=== PATIENT | male | born 1960 | race Native Hawaiian/Other Pacific Islander ===

== ENCOUNTER 2017-08-23 09:28 | Outpatient (CLI) | payer OTHER | END 2017-08-23 22:24 | disposition home or self-care (01) | LOC: RAD 09:28 | DX: M47.896 Other spondylosis, lumbar region (principal) ==

== ENCOUNTER 2018-05-29 09:22 | Outpatient (CLI) | payer OTHER | END 2018-05-29 19:25 | disposition home or self-care (01) | LOC: RESP 09:22 | DX: R06.02 Shortness of breath (principal) ==

== ENCOUNTER 2018-07-08 07:39 | Outpatient (CLI) | payer OTHER ==
[~2018-07-08] VITALS: Ht 177.8 cm; Wt 105.7 kg
== END 2018-07-08 23:47 | disposition home or self-care (01) ==
LOC: NM 07:39
DX: R06.09 Other forms of dyspnea (principal)
CPT/HCPCS: A9500; J2785

== ENCOUNTER 2020-02-10 09:57 | Outpatient (CLI) | payer OTHER | END 2020-02-10 22:55 | disposition home or self-care (01) | LOC: RESP 09:57 | DX: J44.9 Chronic obstructive pulmonary disease, unspecified (principal) ==

== ENCOUNTER → 2020-06-15 13:24 | Outpatient (CLI) | payer OTHER | END | disposition home or self-care (01) | LOC: MRI 06-13 09:00 | PROVIDERS: ATTEND Anesthesiology Pain Medicine | DX: M54.5 Low back pain (principal) ==

== ENCOUNTER 2021-02-02 18:57 | Inpatient (IN) | payer OTHER ==
[~2021-02-02] VITALS: Ht 177.8 cm; Wt 96.4 kg
[2021-02-02 18:57] VITALS: BP 133/87; TEMP 97.3
[2021-02-02 20:00] VITALS: BP 144/91
[2021-02-02 20:00] LABS: PLATELET COUNT 227 K/uL (142-355)
[2021-02-02 20:18] LABS: PARTIAL THROMBOPLASTIN TIME 26.3 SECONDS (24.5-33.6)
[2021-02-02 20:21] LABS: POTASSIUM 3.9 mmol/L (3.6-5.2); SODIUM 137 mmol/L (136-145)
[2021-02-02 21:00] VITALS: BP 166/109
[2021-02-02 22:00] VITALS: BP 153/104
[2021-02-02 23:00] VITALS: BP 157/106
[2021-02-03] VITALS (7 sets, daily range): BP systolic 119–163; BP diastolic 75–104; TEMP 97.6–98.6; Ht 177.8 cm; Wt 96.4 kg
--- NOTE | 2021-02-03 02:12 | NUR ---
PT ARRIVED TO MED-SURG @ 0031 02/03/21 VIA STRETCHER FROM ER. ALERT AND ORIENTED *4 VOICE COMPLAINTS OF SOB. VITALS 98.2,99,21,153/102,93. PT ON HIGH FLOW AT 50L/MIN AT 71%. PT ABLE TO AMBULATE WITH MIMINAL ASSISTANCE. ORIENTED TO ROOM, CALL BUTTON, AND BATHROOM. PT VERBALIZED NO PAIN AT PRESENT JUST "CAN'T BREATHE" TELEMETRY CONNECTED PT HAS HX OF HTN, DM, RA, DEGENERATE ARTHURITIS IN BACL, GOUT, FORMER SMOKER, VERBALIZE DRINKING A "6 PACK A DAY". PT PCP Enrike MCKEON 02/02/21 PT HAS 20G TO LAC.
[2021-02-03 05:04] LABS: PARTIAL THROMBOPLASTIN TIME 26.7 SECONDS (24.5-33.6)
[2021-02-03 05:05] LABS: PLATELET COUNT 222 K/uL (142-355)
[2021-02-03 05:21] LABS: SODIUM 138 mmol/L (136-145)
--- NOTE | 2021-02-03 09:42 | NUR ---
PT IS CURRENTLY RECIEVING AN ULTRASOUND. WILL BE BACK TO CONTINUE PT CARE.
--- NOTE | 2021-02-03 10:14 | NUR ---
MORNING ASSESSMENT AND MED ADMINISTRATION HAS BEEN PERFORMED. PT TOOK MEDICATIONS WITHOUT ANY DIFFICULTY. PT IS IN [place] WATCHING TELEVISION. PT STATED THAT HE HAD A SMALL INCONTINENT EPISODE, SCIENTIST IMMUNOLOGY CLEANED PT AND PLACED HIM IN A FRESH BRIEF. PT STATED THAT HE IS NOT NORMALLY INCONTINENT BUT COULD NOT GET OUT OF THE BED FAST ENOUGH TO GO TO THE BATHROOM. A BEDSIDE COMMODE WAS PLACED IN THE PT'S ROOM. WILL CONTINUE TO MONITOR.
--- NOTE | 2021-02-03 12:06 | NUR ---
1145 PT FIO2 DECREASED TO 60%. POX REMAINED 95-96%. PT NURSE INFORMED OF CHANGE.
--- NOTE | 2021-02-03 15:53 | NUR ---
1540 PT FIO2 DECREASED TO 55% ON HFNC. POX REMAINED 96-97%. PT NURSE INFORMED OF CHANGE.
[2021-02-03] MEDS ORDERED: TRICOR145 M1 PO (20:26)
[2021-02-03] MEDS ORDERED: FISH OIL1 C10 PO (20:27)
[2021-02-03] MEDS ORDERED: ESCI10TA PO (20:28)
[2021-02-03] MEDS ORDERED: CLOP75TA2 PO (20:29)
[2021-02-03] MEDS ORDERED: ALLO300T23 PO (20:29)
[2021-02-03] MEDS ORDERED: METFORMIN ER1000 MG PO (20:30)
[2021-02-03] MEDS ORDERED: LIPITOR20 MG PO (20:32)
[2021-02-03] MEDS ORDERED: CARV25TA PO (20:32)
[2021-02-03] MEDS ORDERED: CELEBREX200 MG PO (20:34)
[2021-02-03] MEDS ORDERED: VITAMIN D50000 UNIT PO (20:35)
[2021-02-03] MEDS ORDERED: POTASSIUM CHLO20 ME1 PO (20:36)
[2021-02-03] MEDS ORDERED: FUROSEMIDE40 MG PO (20:37)
[2021-02-03] MEDS ORDERED: ASA LOW DOSE81 MG (20:38)
[2021-02-03] MEDS ORDERED: MECLIZINE 2525 MG PO (20:39)
[2021-02-04] VITALS: BP 143/100; TEMP 97.8
[2021-02-04 04:00] VITALS: BP 139/92; TEMP 97.8
[2021-02-04 08:00] VITALS: BP 125/87; TEMP 97.6
--- NOTE | 2021-02-04 08:58 | NUR ---
PT IS ON HFNC AT 50LPM AT 55% FIO2. SPO2 AT 98%. RT DECREASED HFNC TO 40LPM AT 45% FIO2. SPO2 AT 98%. WILL CONTINUE TO MONITOR AND WEAN PT TOLERATED.
[2021-02-04 09:07] LABS: PLATELET COUNT 245 K/uL (142-355)
--- NOTE | 2021-02-04 09:13 | NUR ---
RT CAME TO TALK WITH AUTOMATIC TRANSMISSION MECHANIC INFORMING AUTOMATIC TRANSMISSION MECHANIC THAT PT'S O2 SETTINGS HAVE BEEN DROPPED TO 40L AT 45% ON HIGH FLOW. PT IS CURRENTLY MAINTAINING AT 02 SATURATION OF 96%.
[2021-02-04 09:28] LABS: POTASSIUM 3.2 mmol/L (3.6-5.2)
--- NOTE | 2021-02-04 09:32 | NUR ---
IN PT'S ROOM FOR MORNING ASSESSMENT ALONG WITH MEDICATION ADMINISTRATION. PT IS SITTING UPRIGHT ON THE SIDE OF THE BED EATING BREAKFAST. PT TOOK MEDICATIONS WITHOUT ANY DIFFICULTY. PT IS ALERT AND ORIENTED. LUNGS SOUND CLEAR AND NO COUGH IS PRESENT. S1 AND S2 SOUNDS NOTED, NO EDEMA PRESENT. RADIAL PULSES ARE STRONG BUT PEDAL PULSES ARE WEAK. PT STATES THAT WHEN HE DANGLES HIS LEGS OFF THE SIDE OF THE BED THAT THEY GET COLD AND NUMB DUE TO THE LACK OF BLOOD FLOW. PT INFORMED ME THAT THIS IS NOT A NEW OCCURENCE, THAT HIS LEGS HAVE DONE THIS FOR A LONG TIME. BOWEL SOUNDS ARE PRESENT IN ALL FOUR QUADRANTS. PT DENIES ANY PAIN OR NEEDS AT THIS TIME. WILL CONTINUE TO MONITOR.
[2021-02-04 12:00] VITALS: BP 120/79; TEMP 97.9
--- NOTE | 2021-02-04 12:10 | NUR ---
WHILE IN PT'S ROOM ADMINISTERING MEDICATIONS, TRUCK WASHER NOTICED A NEW BRUISE LOCATED TO THE LEFT LOWER ABDOMEN. WHEN TRUCK WASHER POINTED OUT BRUISE TO PT. PT STATED THAT HE HAD NOT NOTICED THE BRUISE. PT STATED THAT HE HAS NOT FALLEN OR BUMPED INTO ANYTHING TO CAUSE THE BRUISE. BRUISE CAN POTENTIALLY BE FROM LOVENOX SHOT. WILL CONTINUE TO MONITOR.
--- NOTE | 2021-02-04 14:14 | NUR ---
RT HAS INFORMED BLOOD DONOR UNIT ASSISTANT THE O2 SETTINGS ON HIGH FLOW HAVE BEEN CHANGED TO 40% AND 30LPM. CURRENT O2 SATURATION IS MAINTAINING AT 94%.
--- NOTE | 2021-02-04 14:39 | NUR ---
RT DECREASED HFNC TO 30LPM AT 40%. SPO2 AT 94%. WILL CONTINUE TO MONITOR AND WEAN TOLERATED.
--- NOTE | 2021-02-04 15:53 | NUR ---
SPO2 AT 95%. RT PLACED PT ON 4LPM NC WITH HUMIDITY. SPO2 AT 92%. WILL CONTINUE TO MONITOR. RT ALSO PLACED AN ADAPTER ON PT HOME CPAP TO BLEED IN O2 IF NEEDED FOR SLEEP.
[2021-02-04 16:00] VITALS: BP 146/94; TEMP 97.9
--- NOTE | 2021-02-04 16:04 | NUR ---
RT HAS INFORMED MACHINE FEED OPERATOR THAT PT HAS BEEN SWITCHED FROM HIGH FLOW O2 TO NASAL CANNULA AT 4 LPM.
--- NOTE | 2021-02-04 17:30 | NUR ---
PT SPO2 AT 93% ON 4LPM NC AT 36% WITH HUMIDITY.
[2021-02-04 20:00] VITALS: BP 144/92; TEMP 98.2
[2021-02-05 00:17] VITALS: BP 115/81; TEMP 98
[2021-02-05 04:25] VITALS: BP 107/63; TEMP 98.1
[2021-02-05 05:17] LABS: PLATELET COUNT 271 K/uL (142-355)
[2021-02-05 05:20] LABS: POTASSIUM 3.3 mmol/L (3.6-5.2)
[2021-02-05 08:00] VITALS: BP 120/91; TEMP 97.6
--- NOTE | 2021-02-05 08:20 | NUR ---
PT NOTED TO BE LAYING IN BED ON HIS LEFT SIDE WITH HIS CPAP ON RESTING QUIETLY NO DISTRESS NOTED AT THIS TIME.
--- NOTE | 2021-02-05 10:38 | NUR ---
PT IS NOW ON 2LPM NC AT 28%. SPO2 AT 92%
[2021-02-05 12:00] VITALS: BP 121/86; TEMP 98.1
[2021-02-05 16:00] VITALS: BP 150/92; TEMP 97.9
--- NOTE | 2021-02-05 16:15 | NUR ---
PT NOTED TO BE STANDING UP AT BEDSIDE WHEN ENTERING ROOM. PT NOTED TO BE ON O2 AT 2LPM NC WITH EXTENSION TO ALLOW HIM TO AMBULATE TO BSC.
[2021-02-05 20:00] VITALS: BP 149/95; TEMP 97.4
[2021-02-06] VITALS: BP 154/82; TEMP 98.5
[2021-02-06 04:00] VITALS: BP 125/94; TEMP 98.3
[2021-02-06 05:17] LABS: PLATELET COUNT 277 K/uL (142-355)
[2021-02-06 05:26] LABS: POTASSIUM 3.3 mmol/L (3.6-5.2)
[2021-02-06 08:00] VITALS: BP 131/94; TEMP 97.5
[2021-02-06 12:00] VITALS: BP 115/84; TEMP 97.6
--- NOTE | 2021-02-06 16:31 | NUR ---
CERTIFIED RESPIRATORY HERE TO DELIVER HOME O2 FOR PT UPCOMING DC HOME.
[2021-02-06] MEDS ORDERED: MAGN400T4 PO (17:41)
[2021-02-06] MEDS ORDERED: CARV6.25 PO (17:43)
[2021-02-06] MEDS ORDERED: LEVAQUIN250 MG PO (17:46)
--- NOTE | 2021-02-06 18:44 | NUR ---
DC'D HOME VIA WC AFTER DC INST GIVEN AND PT SHOWN HOW TO USE HOME O2
--- NOTE | 2021-02-08 10:20 | NUR ---
Spoke with patients and she says that he is doing good. She says he slept most of the day yesterday. He has a follow up appointment with pulmonologists Dr. Rasm[place] on 02/15 and would then be following up with Bernard Wolf after. She said that he wanted to make sure to let everyone know that he was taken very good care of while he was here, and that he wanted to send out a big thanks to everyone.
== END 2021-02-06 18:35 | disposition home or self-care (01) | DRG 196 ==
LOC: ED 18:57 → MED/SURG 23:20
PROVIDERS: ADMIT Emergency Medicine; ATTEND Internal Medicine
DX: J84.89 Other specified interstitial pulmonary diseases (principal); J18.8 Other pneumonia, unspecified organism; I13.0 Hypertensive heart and chronic kidney disease with heart failure and stage 1 through stage 4 chronic kidney disease, or unspecified chronic kidney disease; N17.8 Other acute kidney failure; J44.0 Chronic obstructive pulmonary disease with (acute) lower respiratory infection; E11.42 Type 2 diabetes mellitus with diabetic polyneuropathy; H40.89 Other specified glaucoma; I25.10 Atherosclerotic heart disease of native coronary artery without angina pectoris; M10.9 Gout, unspecified; E55.9 Vitamin D deficiency, unspecified; E53.8 Deficiency of other specified B group vitamins; E61.2 Magnesium deficiency; E11.22 Type 2 diabetes mellitus with diabetic chronic kidney disease; N18.30 Chronic kidney disease, stage 3 unspecified; I50.9 Heart failure, unspecified; E78.49 Other hyperlipidemia; R09.02 Hypoxemia
CPT/HCPCS: 36415; 36600; 80048; 80053; 80307; 81000; 82550; 82805; 83605; 83690; 83735; 83880; 84443; 84484; 85027; 85610; 85730; 87040; 87635; 93005; 94760; 96365; 96375; 99284; J0456; J0696; J1100; J1650; J1940; J2930; Q9963; U0003